=== PATIENT | male | born 1955 | race African-American/Black ===

== ENCOUNTER 2020-09-08 10:10 | Outpatient (CLI) | payer OTHER ==
--- NOTE | 2020-09-08 10:27 | RAD ---
EXAM: 3 views of the left ankle HISTORY: Ankle pain from chronic injury COMPARISON: None FINDINGS: 3 views of the left ankle shows no evidence of acute fracture or dislocation. Remodeling of the distal fibula is seen from prior remote healed fracture. No soft tissue swelling is seen. Mild tibiotalar degenerative changes are present. Vascular calcifications are present. IMPRESSION: No evidence of acute osseous abnormality.
== END 2020-09-08 10:11 | disposition home or self-care (01) ==
LOC: MADRAD 10:10
PROVIDERS: ATTEND Orthopaedic Surgery
DX: M19.90 Unspecified osteoarthritis, unspecified site (principal)